=== PATIENT | male | born 1985 | race Caucasian/White ===

== ENCOUNTER 2018-07-01 22:44 | Emergency (ER) | payer SELFPAY ==
--- NOTE | 2018-07-01 22:51 | PDOC ---
History of Present Illness - General History Source: Patient Exam Limitations: No Limitations - History of Present Illness Initial Comments: 07/01/18 23:18 The patient is a 32 year old RHD male with no significant past medical history, who presents to the emergency room today with a laceration on the web space between the thumb and index finger of the right hand that occurred approximately 1 hour ago. The patient explains that he was opening a bottle of nail [place] for his when the bottle cracked and a piece of glass from the bottle pierced his hand. He pulled the glass out, washed the hand with some water, and applied pressure to stop the bleeding. He denies numbness or tingling. Denies any other injuries. The patient is unsure when his last tetanus shot was. Allergies: NKDA Social Hx: No tobacco use. +Marijuana use PCP: none <Richelle Solitario - Last Filed: 07/01/18 23:35> <Felicia Dumas - Last Filed: 07/02/18 04:38> - General Chief Complaint: Laceration Stated Complaint: RH LAC Time Seen by Provider: 07/01/18 22:46 Past History <Richelle Solitario - Last Filed: 07/01/18 23:35> - Past Medical History COPD: No - Suicide/Smoking/Psychosocial Hx Smoking History: Current some day smoker Number of Cigarettes Smoked Daily: 0 Information on smoking cessation initiated: Yes 'Breaking Loose' booklet given: 07/01/18 Substance Use Type: Marijuana <Felicia Dumas - Last Filed: 07/02/18 04:38> - Past Medical History Allergies/Adverse Reactions: Allergies Allergy/AdvReac Type Severity Reaction Status Date / Time No Known Allergies Allergy Unverified 07/01/18 22:45 Home Medications: Ambulatory Orders Cephalexin Monohydrate [Keflex -] 500 mg PO Q6H #12 capsule 07/02/18 Review of Systems - Review of Systems Comments:: 07/01/18 23:19 GENERAL/CONSTITUTIONAL: No fever or chills. No weakness. HEAD, EYES, EARS, NOSE AND THROAT: No change in vision. No ear pain or discharge. No sore throat. CARDIOVASCULAR: No chest pain or shortness of breath. MUSCULOSKELETAL: No joint or muscle swelling or pain. No neck or back pain. SKIN: +right hand laceration to the web-space between thumb and index finger. No rash NEUROLOGIC: No headache, vertigo, loss of consciousness, or change in strength/ sensation. ALLERGIC/IMMUNOLOGIC: No hives or skin allergy. <ZeenatbillRichelle - Last Filed: 07/01/18 23:35> *Physical Exam - Vital Signs Last Vital Signs Temp Pulse Resp BP Pulse Ox 97.8 F 85 16 142/79 98 07/01/18 22:45 07/01/18 22:45 07/01/18 22:45 07/01/18 22:45 07/01/18 22:45 - Physical Exam Comments: 07/01/18 23:19 GENERAL: Awake, alert, and fully oriented, in no acute distress HEAD: No signs of trauma EYES: PERRLA, EOMI, sclera anicteric, conjunctiva clear HEART: Regular rate and rhythm, normal S1 and S2, no murmurs, rubs or gallops RIGHT HAND: +There is a 2 cm full thickness linear laceration to the palmar aspect of the webspace between thumb and first finger. Motor and sensory intact. Distal extremity warm with excellent capillary refill. No other injuries. NEUROLOGICAL: Cranial nerves II through XII grossly intact. Normal speech, normal gait <ZeenatShawn khanRichelle - Last Filed: 07/01/18 23:35> Procedures - Laceration/Wound Repair Right Hand Wound Length: to 2.5 cm Wound Explored: clean Wound's Depth, Shape: linear Irrigated w/ Saline: Yes Betadine Prep: No (Hibiclens/ethanol) Anesthesia: 1% Lidocaine Amount of Anesthetic (ccs): 3 Wound Debrided: moderate (areas of skin containing nail lacquer debrided from the edge of the wound) Wound Repaired With: Sutures Suture Size/Type: 4:0 Number of Sutures: 5 Sterile Dressing Applied: Yes Splint Applied: No Progress: Area of the right hand wound cleansed using Hibiclens/ethanol solution and sterilely draped. 3 mL of 1% lidocaine infiltrated into the wound for local anesthesia. Prior to irrigation and closure, area of localized skin hardening secondary to exposure to nail lacquer that was present in the bottle that broke was gently cleansed using nail [place] remover. Also, small area of hardened skin edge was sharply debrided. Then wound was copiously irrigated using 80 mL of sterile normal saline. No area of glass or nail lacquer was identified within the wound. Edges closely approximated and Wound closed using 5 interrupted sutures of 4-0 nylon. Bacitracin and sterile gauze applied to wound followed by gauze wrap dressing. Patient tolerated procedure well <Felicia Dumas - Last Filed: 07/02/18 04:38> Progress Note - Progress Note Progress Note: Documentation has been prepared under my direction and personally reviewed by me in its entirety. I attest that this documented accurately reflects all work, treatment, procedures and medical decision making performed by me. <Felicia Dumas - Last Filed: 07/02/18 04:38> Medical Decision Making - Medical Decision Making As noted above, this 32-year-old man presents with a laceration of the webspace between the thumb and the forefinger of the right hand. Nail lacquer bottle broke in his hand and small amount of lacquer fell into the wound that was caused by the bottle edge. As noted in the procedure note, some areas of skin that had been hardened by the lacquer were debrided prior to closure the wound. Irrigation with sterile normal saline was copious and no foreign bodies are evident. Prior to closure of the wound, x-ray had been performed to rule out radiodense foreign body. No clear area of foreign body was seen on the x-ray. Patient tolerated procedure well. He was given Keflex 500 mg PO for wound infection prophylaxis. Prescription for 500 mg 4 times a day for 3 days sent to the pharmacy. Meanwhile, wound will be kept as dry as possible for 2 days; after that, wound can be kept open at night and covered with protective Band- Aid or other light dressing during the day. He will return here or see his doctor if area appears to be infected. Sutures should be removed on Tuesday, Jul 10 <Felicia Dumas - Last Filed: 07/02/18 04:38> *DC/Admit/Observation/Transfer - Attestations Scribe Attestion: 07/01/18 23:19 Documentation prepared by ANDRAE Arroyo, acting as medical reception for Felicia Dumas MD. <Richelle Solitario - Last Filed: 07/01/18 23:35> <Felicia Dumas - Last Filed: 07/02/18 04:38> Diagnosis at time of Disposition: Laceration of right hand Qualifiers: Encounter type: initial encounter Foreign body presence: without foreign body Qualified Code(s): S61.411A - Laceration without foreign body of right hand, initial encounter - Discharge Dispostion Disposition: HOME Condition at time of disposition: Stable - Prescriptions Prescriptions: Cephalexin Monohydrate [Keflex -] 500 mg PO Q6H #12 capsule - Patient Instructions Printed Discharge Instructions: How to Care for a Laceration After Repair Additional Instructions: Keep right hand elevated as much as possible over the next 2 days Keep right hand bandage intact and as dry as possible for the next 2 days After 2 days, remove original bandage; can use bandaid during day/leave open at night Keflex 500 mg every 6 hours for the next 3 days Return or see your doctor if wound appears red/swollen/painful Have sutures removed on TuesdayJuly 10
[2018-07-01 22:54] VITALS: BP 142/79; PULSE 85; TEMP 97.8; BMI 32.8
[2018-07-01] MEDS ORDERED: DIPHTH,PERTUSS(ACELL),TET 0.5 ML DISP.SYRIN IM ONE (23:36)
[2018-07-02] MEDS ORDERED: CEPHALEXIN MONOHYDRATE 500 MG CAPSULE (UD) PO ONE (00:17)
[2018-07-02] MEDS ORDERED: CEPHALEXIN MONOHYDRATE 500 MG CAPSULE (UD) ONE (00:18)
== END 2018-07-02 00:36 | disposition home or self-care (01) ==
LOC: FER 22:44
PROC: 0HQFXZZ Repair Right Hand Skin, External Approach (ICD-10-PCS; principal; 2018-07-01)
DX: S61.411A Laceration without foreign body of right hand, initial encounter (principal); W25.XXXA Contact with sharp glass, initial encounter; Y93.89 Activity, other specified; Y92.89 Other specified places as the place of occurrence of the external cause
CPT/HCPCS: 73130-TC-RT-FY; 90715; 99282-25